=== PATIENT | male | born 1990 | race Caucasian/White ===

== ENCOUNTER 2018-01-03 16:04 | Emergency (ER) | payer BC ==
[2018-01-03] MEDS: ASPIRIN 81 MG CHEW TABLET PO (16:54)
[2018-01-03] MEDS: NS 1,000 ML IV (16:54)
[2018-01-03 17:11] LABS: BASO # 0.1 10^3/uL (0.0-0.2); BASO % 0.7 % (0.0-1.0); EOS # 0.4 10^3/uL (0.0-0.50); EOS % 3.9 % (0.0-3.0); HEMATOCRIT 50.9 % (42.0-52.0); HEMOGLOBIN 18.1 g/dl (13.5-17.5); IMMATURE GRANULOCYTE % 0.3 % (0-3.0); LYMPH # 2.9 10^3/uL (1.5-6.5); LYMPH % 30.8 % (24.0-44.0); MEAN CORPUSCULAR HEMOGLOBIN 29.7 pg (27.0-33.0); MEAN CORPUSCULAR HGB CONC 35.6 g/dl (32.0-36.5); MEAN CORPUSCULAR VOLUME 83.4 fl (80.0-96.0); MONO # 0.9 10^3/uL (0.0-0.8); MONO % 9.2 % (0.0-5.0); NEUTROPHILS # 5.2 10^3/uL (1.8-7.7); NEUTROPHILS % 55.1 % (36.0-66.0); PLATELET COUNT, AUTOMATED 298 10^3/uL (150-450); RED CELL DISTRIBUTION WIDTH 12.7 % (11.5-14.5); WHITE BLOOD COUNT 9.4 10^3/uL (4.0-10.0)
[2018-01-03 17:19] LABS: INR 0.96; PROTHROMBIN TIME 12.9 SECONDS (12.1-14.4)
[2018-01-03 17:44] LABS: ALBUMIN 4.4 GM/DL (3.2-5.2); ALKALINE PHOSPHATASE 93 U/L (45-117); ALT/SGPT 62 U/L (12-78); ANION GAP 9 MEQ/L (8-16); AST/SGOT 26 U/L (7-37); BILIRUBIN,DIRECT 0.2 MG/DL (0.0-0.2); BILIRUBIN,TOTAL 1.4 MG/DL (0.2-1.0); BLOOD UREA NITROGEN 21 MG/DL (7-18); CALCIUM LEVEL 9.2 MG/DL (8.5-10.1); CARBON DIOXIDE LEVEL 26 MEQ/L (21-32); CHLORIDE LEVEL 101 MEQ/L (98-107); CPK CREATINE PHOSPHOKINASE 247 U/L (39-308); CREATININE FOR GFR 1.08 MG/DL (0.70-1.30); FREE T4 0.85 NG/DL (0.76-1.46); GLOMERULAR FILTRATION RATE > 60.0 (>60); GLUCOSE, FASTING 92 MG/DL (70-100); LIPASE 137 U/L (73-393); MB/CK RELATIVE INDEX 0.81 (< OR =4); POTASSIUM SERUM 3.9 MEQ/L (3.5-5.1); SODIUM LEVEL 136 MEQ/L (136-145); TOTAL PROTEIN 8.4 GM/DL (6.4-8.2); TROPONIN I < 0.02 NG/ML (< 0.10)
== END 2018-01-03 18:16 | disposition home or self-care (01) ==
LOC: M ED 16:04
DX: I49.3 Ventricular premature depolarization (principal); I48.91 Unspecified atrial fibrillation; I10 Essential (primary) hypertension; K21.9 Gastro-esophageal reflux disease without esophagitis; Z79.899 Other long term (current) drug therapy
CPT/HCPCS: 71046

== ENCOUNTER → 2018-02-05 | Outpatient (REF) | payer BC ==
[2018-02-05 20:43] LABS: CHLAMYDIA DNA AMPLIFICATION NEGATIVE (NEGATIVE); GC DNA AMPLIFICATION NEGATIVE (NEGATIVE)
== END ==
LOC: M LAB REF 15:53
DX: N45.1 Epididymitis (principal)
CPT/HCPCS: 87086

== ENCOUNTER → 2018-05-11 | Outpatient (CLI) | payer BC ==
[~2018-05-11] MED LIST: CARV6.25 PO; FAMO40TA3 PO; LISI-538 PO; OMEP40CA2 PO
[2018-05-11 13:39] LABS: BASO # 0.1 10^3/uL (0.0-0.2); BASO % 0.7 % (0.0-1.0); EOS # 0.4 10^3/uL (0.0-0.50); EOS % 4.5 % (0.0-3.0); HEMATOCRIT 49.6 % (42.0-52.0); HEMOGLOBIN 16.9 g/dl (13.5-17.5); LYMPH # 2.5 10^3/uL (1.5-6.5); LYMPH % 31.4 % (24.0-44.0); MEAN CORPUSCULAR HGB CONC 34.1 g/dl (32.0-36.5); MEAN CORPUSCULAR VOLUME 85.2 fl (80.0-96.0); MONO # 0.8 10^3/uL (0.0-0.8); MONO % 9.4 % (0.0-5.0); NEUTROPHILS # 4.3 10^3/uL (1.8-7.7); NEUTROPHILS % 53.5 % (36.0-66.0); PLATELET COUNT, AUTOMATED 282 10^3/uL (150-450); RED BLOOD COUNT 5.82 10^6/uL (4.30-6.10)
[2018-05-11 14:14] LABS: BLOOD UREA NITROGEN 12 MG/DL (7-18); CALCIUM LEVEL 9.3 MG/DL (8.5-10.1); CARBON DIOXIDE LEVEL 31 MEQ/L (21-32); CHLORIDE LEVEL 103 MEQ/L (98-107); CREATININE FOR GFR 0.86 MG/DL (0.70-1.30); GLOMERULAR FILTRATION RATE > 60.0 (>60); GLUCOSE, FASTING 73 MG/DL (70-100); POTASSIUM SERUM 4.4 MEQ/L (3.5-5.1); SODIUM LEVEL 139 MEQ/L (136-145)
== END ==
LOC: M LAB 12:10
PROVIDERS: ATTEND Nurse Practitioner Family
DX: R19.7 Diarrhea, unspecified (principal)

== ENCOUNTER → 2019-08-26 | Outpatient (REF) | payer BC ==
[~2019-08-26] MED LIST changes: -OMEP40CA2 PO; +OMEP40CA97 PO
== END ==
LOC: M SMT 18:18
PROVIDERS: ATTEND Urology
DX: Z30.2 Encounter for sterilization (principal)

== ENCOUNTER → 2019-10-24 | Outpatient (REF) | payer BC ==
[~2019-10-24] MED LIST changes: +COQ-100C5 PO; +FLEC150T; +KEFL500C17 PO
[2019-10-25 11:11] LABS: SEMEN APPEARANCE OPAQUE (OPAQUE); SEMEN VISCOSITY LIQUID (LIQUID); SEMEN VOLUME 4.3 ml (2.0-5.0); WBC CONCENTRATION <=1 M/ml (<=1 M/ml)
== END ==
LOC: M LAB REF 15:00
PROVIDERS: ATTEND Urology
DX: Z98.52 Vasectomy status (principal)

== ENCOUNTER 2019-12-24 08:20 | Emergency (ER) | payer BC ==
[~2019-12-24] VITALS: Ht 167.6 cm; Wt 97.8 kg
[~2019-12-24 08:20] MED LIST changes: -COQ-100C5 PO; -FLEC150T; -KEFL500C17 PO
[2019-12-24] MEDS ORDERED: COQ-100C5 PO (08:31)
[2019-12-24] MEDS ORDERED: FLEC150T (08:31)
[2019-12-24] MEDS ORDERED: ACETAMINOPHEN 500 MG TAB PO ONE (09:00)
--- NOTE | 2019-12-24 09:11 | REP ---
INDICATION: stepped on nail yesterday COMPARISON: None. TECHNIQUE: AP, lateral, bilateral oblique views left foot. FINDINGS: The osseous structures and joint spaces are intact and normal. There is no evidence for acute fracture or dislocation. Surrounding soft tissues are unremarkable. No subcutaneous emphysema or radiodense foreign body. IMPRESSION: No subcutaneous emphysema or foreign body identified. No acute fracture or dislocation. <Electronically signed by Gordon Parker > 12/24/19 [id number]
[2019-12-24] MEDS ORDERED: BOOSTRIX/ADACEL VACCINE (DIPHTH/PERTUSS/ACELL/TETANUS) 0.5ML SYR IM ONE (09:15)
[2019-12-24] MEDS ORDERED: MEROPENEM INJ 1 GM in IV 1 EA IV ONE (10:00)
[2019-12-24] MEDS ORDERED: KEFL500C17 PO (10:22)
[2019-12-24 11:00] VITALS: BP 110/62
== END 2019-12-24 11:01 | disposition home or self-care (01) ==
LOC: M ED 08:20
DX: S91.332A Puncture wound without foreign body, left foot, initial encounter (principal); W45.0XXA Nail entering through skin, initial encounter; Y92.9 Unspecified place or not applicable; Y93.9 Activity, unspecified; I48.91 Unspecified atrial fibrillation; K21.9 Gastro-esophageal reflux disease without esophagitis; Z79.899 Other long term (current) drug therapy
CPT/HCPCS: 73630; 90471; 90715; 96365; 99284; J2185

== ENCOUNTER 2019-12-26 09:23 | Emergency (ER) | payer BC ==
[~2019-12-26] VITALS: Ht 167.6 cm; Wt 96.7 kg
[~2019-12-26 09:23] MED LIST changes: +COQ-100C5 PO; +FLEC150T; +KEFL500C17 PO
[2019-12-26] MEDS ORDERED: MEROPENEM INJ 1 GM in IV 1 EA IV ONE (10:00)
[2019-12-26 10:55] LABS: BASO # 0.1 10^3/uL (0.0-0.2); BASO % 0.7 % (0.0-1.0); EOS # 0.2 10^3/uL (0.0-0.5); EOS % 1.8 % (0.0-3.0); HEMATOCRIT 47.8 % (42.0-52.0); HEMOGLOBIN 16.1 g/dl (13.5-17.5); LYMPH # 2.9 10^3/uL (1.5-5.0); LYMPH % 35.4 % (24.0-44.0); MEAN CORPUSCULAR HEMOGLOBIN 28.7 pg (27.0-33.0); MEAN CORPUSCULAR HGB CONC 33.7 g/dl (32.0-36.5); MEAN CORPUSCULAR VOLUME 85.2 fl (80.0-96.0); MONO # 0.9 10^3/uL (0.0-0.8); MONO % 10.5 % (0.0-5.0); NEUTROPHILS # 4.2 10^3/uL (1.5-8.5); NEUTROPHILS % 51.4 % (36.0-66.0); PLATELET COUNT, AUTOMATED 283 10^3/uL (150-450); RED BLOOD COUNT 5.61 10^6/uL (4.30-6.10); WHITE BLOOD COUNT 8.2 10^3/uL (4.0-10.0)
[2019-12-26 11:33] VITALS: BP 112/68
== END 2019-12-26 11:34 | disposition home or self-care (01) ==
LOC: M ED 09:23
DX: S91.332D Puncture wound without foreign body, left foot, subsequent encounter (principal); W45.0XXD Nail entering through skin, subsequent encounter; Y92.9 Unspecified place or not applicable; I48.91 Unspecified atrial fibrillation; K21.9 Gastro-esophageal reflux disease without esophagitis; Z79.899 Other long term (current) drug therapy
CPT/HCPCS: 85025; 96365; 99283; J2185

== ENCOUNTER → 2020-03-05 | Outpatient (CLI) | payer BC ==
[2020-03-05 14:45] LABS: ALT/SGPT 52 U/L (12-78); BILIRUBIN,TOTAL 0.8 MG/DL (0.2-1.0); BLOOD UREA NITROGEN 23 MG/DL (7-18); CALCIUM LEVEL 9.3 MG/DL (8.5-10.1); CARBON DIOXIDE LEVEL 29 MEQ/L (21-32); CHLORIDE LEVEL 102 MEQ/L (98-107); CREATININE FOR GFR 1.08 MG/DL (0.70-1.30); FREE T4 0.94 NG/DL (0.76-1.46); GLOMERULAR FILTRATION RATE > 60.0 (>60); GLUCOSE, FASTING 72 MG/DL (70-100); MAGNESIUM LEVEL 1.9 MG/DL (1.8-2.4); NT-PRO BNP 11 PG/ML (<125); POTASSIUM SERUM 4.5 MEQ/L (3.5-5.1); SODIUM LEVEL 136 MEQ/L (136-145); TOTAL PROTEIN 7.4 GM/DL (6.4-8.2)
== END ==
LOC: M LAB 13:00
PROVIDERS: ATTEND Internal Medicine Cardiovascular Disease
DX: I49.3 Ventricular premature depolarization (principal); I11.9 Hypertensive heart disease without heart failure; E78.2 Mixed hyperlipidemia

== ENCOUNTER 2020-10-16 20:40 | Emergency (ER) | payer BC ==
[~2020-10-16] VITALS: Ht 167.6 cm; Wt 97.3 kg
[~2020-10-16 20:40] MED LIST changes: -LISI-538 PO; +LISI20TA33 PO; +OMEP40CA4 PO; -OMEP40CA97 PO
[2020-10-16 22:29] LABS: BASO # 0.1 10^3/uL (0.0-0.2); BASO % 0.7 % (0.0-1.0); EOS # 0.2 10^3/uL (0.0-0.5); EOS % 2.6 % (0.0-3.0); HEMATOCRIT 46.3 % (42.0-52.0); HEMOGLOBIN 15.9 g/dl (13.5-17.5); LYMPH # 2.9 10^3/uL (1.5-5.0); LYMPH % 33.1 % (24.0-44.0); MEAN CORPUSCULAR HEMOGLOBIN 29.1 pg (27.0-33.0); MEAN CORPUSCULAR HGB CONC 34.3 g/dl (32.0-36.5); MEAN CORPUSCULAR VOLUME 84.6 fl (80.0-96.0); MONO # 0.8 10^3/uL (0.0-0.8); MONO % 8.8 % (2.0-8.0); NEUTROPHILS # 4.8 10^3/uL (1.5-8.5); NEUTROPHILS % 54.5 % (36.0-66.0); PLATELET COUNT, AUTOMATED 252 10^3/uL (150-450); RED BLOOD COUNT 5.47 10^6/uL (4.30-6.10); WHITE BLOOD COUNT 8.9 10^3/uL (4.0-10.0)
[2020-10-16] MEDS ORDERED: ACETAMINOPHEN TAB 650MG DOSE (2X325MG) PO ONE (22:40)
--- NOTE | 2020-10-16 22:42 | REPVR ---
PROCEDURE INFORMATION: Exam: XR Chest Exam date and time: 10/16/2020 10:21 PM Age: 30 years old Clinical indication: Chest wall pain; Additional info: Chest pain TECHNIQUE: Imaging protocol: XR of the chest. Views: 1 view. COMPARISON: CR Chest, 2 view PA, Lat 01/03/2018 4:42 PM FINDINGS: Lungs: The lungs are unchanged. No interval infiltrates. Pleural spaces: Unremarkable. No pleural effusion. No pneumothorax. Heart/Mediastinum: The heart and mediastinum are unchanged. Bones/joints: Unremarkable. Soft tissues: There are moderately generous overlying soft tissues. IMPRESSION: Negative chest without change from 01/03/2018. Electronically signed by: Azam Mcallister On 10/16/2020 22:42:30 PM
[2020-10-16 23:12] LABS: ALBUMIN 3.9 GM/DL (3.2-5.2); ALT/SGPT 53 U/L (12-78); BILIRUBIN,DIRECT 0.2 MG/DL (0.0-0.2); BILIRUBIN,TOTAL 0.7 MG/DL (0.2-1.0); BLOOD UREA NITROGEN 13 MG/DL (7-18); CALCIUM LEVEL 8.6 MG/DL (8.5-10.1); CARBON DIOXIDE LEVEL 27 MEQ/L (21-32); CHLORIDE LEVEL 107 MEQ/L (98-107); CK-MB VALUE MASS 1.7 NG/ML (<3.6); CPK CREATINE PHOSPHOKINASE 224 U/L (39-308); CREATININE FOR GFR 0.88 MG/DL (0.70-1.30); FREE T4 0.83 NG/DL (0.76-1.46); GLOMERULAR FILTRATION RATE > 60.0 (>60); GLUCOSE, FASTING 104 MG/DL (70-100); LIPASE 136 U/L (73-393); MAGNESIUM LEVEL 2.1 MG/DL (1.8-2.4); MB/CK RELATIVE INDEX 0.76 (< OR =4); NT-PRO BNP 32 PG/ML (<125); POTASSIUM SERUM 4.1 MEQ/L (3.5-5.1); SODIUM LEVEL 138 MEQ/L (136-145); TOTAL PROTEIN 7.1 GM/DL (6.4-8.2); TROPONIN I < 0.02 NG/ML (< 0.10)
[2020-10-16 23:42] VITALS: BP 104/57
--- NOTE | 2020-10-17 10:06 | ECGEPIP ---
[facility] - ED Test Date: 2020-10-16 Pat Name: CARISSA ALBERTS Department: Room: - Gender: Male [employer] Color Tester: BEN : 1990 Requested By: JAILENE Swanson Order Number: [id number] Reading MD: Natividad Love Measurements Intervals [place] Rate: 84 P: 52 CT: 174 QRS: 76 QRSD: 104 T: 40 QT: 366 QTc: 432 Interpretive Statements Normal sinus rhythm NSTTW abnormalities decreased ectopy/rate 01/03/18 Electronically Signed on 10-17-2020 10:06:28 EDT by Natividad Love
== END 2020-10-16 23:50 | disposition home or self-care (01) ==
LOC: M ED 20:40
DX: R00.2 Palpitations (principal); I48.91 Unspecified atrial fibrillation; I10 Essential (primary) hypertension; F12.10 Cannabis abuse, uncomplicated

== ENCOUNTER → 2021-08-12 | Outpatient (CLI) | payer BC | LOC: M SOG 07:57 | PROVIDERS: ATTEND Orthopaedic Surgery | DX: M25.561 Pain in right knee (principal) ==

== ENCOUNTER → 2022-04-15 | Outpatient (CLI) | payer OTHER ==
[~2022-04-15] MED LIST changes: +E-Z-GAS II EFFERVESCENT PACKET (SODIUM BICARB./CITRIC ACID/SIMETHICONE) As Ordered ONE; +E-Z-HD 98% w/w 340GM SUSP BTL As Ordered ONE; +E-Z-PAQUE 96% w/w SUSP 176GM BTL As Ordered ONE; -FLEC150T; +FLEC150T PO; +OMEP40CA5 PO
== END ==
LOC: M RAD 07:39
PROVIDERS: ATTEND Physician Assistant Medical
DX: R13.10 Dysphagia, unspecified (principal)

== ENCOUNTER → 2022-04-23 | Outpatient (CLI) | payer OTHER ==
[~2022-04-23] MED LIST changes: -E-Z-GAS II EFFERVESCENT PACKET (SODIUM BICARB./CITRIC ACID/SIMETHICONE) As Ordered ONE; -E-Z-HD 98% w/w 340GM SUSP BTL As Ordered ONE; -E-Z-PAQUE 96% w/w SUSP 176GM BTL As Ordered ONE
== END ==
LOC: M LABSMTC 10:11
PROVIDERS: ATTEND Anesthesiology
DX: Z01.812 Encounter for preprocedural laboratory examination (principal); Z11.52 Encounter for screening for COVID-19

== ENCOUNTER 2022-04-28 13:23 | Day surgery (SDC) | payer OTHER ==
[~2022-04-28] VITALS: Ht 167.6 cm; Wt 110.1 kg
[~2022-04-28 13:23] MED LIST changes: +NS 1,000 ML IV ONE
[2022-04-28] MEDS ORDERED: fentaNYL 100 MCG/2 ML INJECTION As Ordered ONE (15:18)
[2022-04-28] MEDS ORDERED: propofoL 200 MG/20 ML VIAL As Ordered ONE (15:37)
[2022-04-28 15:55] VITALS: BP 121/70
== END 2022-04-28 16:00 | disposition home or self-care (01) ==
LOC: M OPP 13:23
PROVIDERS: ATTEND Internal Medicine Gastroenterology
DX: K31.7 Polyp of stomach and duodenum (principal); R13.10 Dysphagia, unspecified; I10 Essential (primary) hypertension; I49.3 Ventricular premature depolarization; Z87.891 Personal history of nicotine dependence; Z79.899 Other long term (current) drug therapy
CPT/HCPCS: 43239; 43251; 43450; 88305; J3010

== ENCOUNTER 2023-02-20 10:48 | Emergency (ER) | payer BC, OTHER ==
[~2023-02-20] VITALS: Ht 167.6 cm; Wt 99.5 kg
[~2023-02-20 10:48] MED LIST changes: -NS 1,000 ML IV ONE
[2023-02-20] MEDS ORDERED: BISO5TAB14 (11:04)
[2023-02-20] MEDS ORDERED: OMEP-173 (11:04)
[2023-02-20] MEDS ORDERED: ISOVUE-370 76% 100ML VIAL As Ordered ONE (11:12)
[2023-02-20 11:25] LABS: HEMATOCRIT 53.3 % (42.0-52.0); HEMOGLOBIN 18.3 g/dl (13.5-17.5); MEAN CORPUSCULAR HEMOGLOBIN 28.9 pg (27.0-33.0); MEAN CORPUSCULAR HGB CONC 34.3 g/dl (32.0-36.5); MEAN CORPUSCULAR VOLUME 84.2 fl (80.0-96.0); PLATELET COUNT, AUTOMATED 299 10^3/uL (150-450); RED BLOOD COUNT 6.33 10^6/uL (4.30-6.10); WHITE BLOOD COUNT 10.5 10^3/uL (4.0-10.0)
[2023-02-20 11:37] LABS: INR 0.98; PROTHROMBIN TIME 12.7 SECONDS (12.5-14.5)
[2023-02-20 11:38] LABS: PARTIAL THROMBOPLASTIN TIME 26.9 SECONDS (24.8-34.2)
[2023-02-20 14:10] VITALS: BP 114/70; TEMP 97.2; O2SAT 99
== END 2023-02-20 14:16 | disposition home or self-care (01) ==
LOC: M ED 10:48
DX: Z71.1 Person with feared health complaint in whom no diagnosis is made (principal); R00.0 Tachycardia, unspecified; I10 Essential (primary) hypertension; K21.9 Gastro-esophageal reflux disease without esophagitis; F10.10 Alcohol abuse, uncomplicated; Z86.79 Personal history of other diseases of the circulatory system
CPT/HCPCS: 36415; 71275; 80047; 85027; 85610; 85730; 93005; 93041; 94760; 99284; Q9967

== ENCOUNTER → 2023-05-26 | Outpatient (CLI) | payer BC ==
[~2023-05-26] MED LIST changes: +BISO5TAB14; +OMEP-173
[2023-05-26 17:20] LABS: BASO # 0.1 10^3/uL (0.0-0.2); BASO % 0.7 % (0.0-1.0); EOS # 0.2 10^3/uL (0.0-0.5); EOS % 1.9 % (0.0-3.0); HEMATOCRIT 49.3 % (42.0-52.0); HEMOGLOBIN 17.2 g/dl (13.5-17.5); LYMPH # 3.7 10^3/uL (1.5-5.0); LYMPH % 42.7 % (24.0-44.0); MEAN CORPUSCULAR HEMOGLOBIN 29.5 pg (27.0-33.0); MEAN CORPUSCULAR HGB CONC 34.9 g/dl (32.0-36.5); MEAN CORPUSCULAR VOLUME 84.4 fl (80.0-96.0); MONO # 0.6 10^3/uL (0.0-0.8); MONO % 7.4 % (2.0-8.0); NEUTROPHILS % 46.8 % (36.0-66.0); PLATELET COUNT, AUTOMATED 289 10^3/uL (150-450); RED BLOOD COUNT 5.84 10^6/uL (4.30-6.10); WHITE BLOOD COUNT 8.6 10^3/uL (4.0-10.0)
[2023-05-26 17:38] LABS: ALBUMIN 4.4 G/DL (3.2-5.2); ALKALINE PHOSPHATASE 84 U/L (46-116); ALT/SGPT 66 U/L (7.0-40); AST/SGOT 24 U/L (<34); BILIRUBIN,TOTAL 1.7 MG/DL (0.3-1.2); BLOOD UREA NITROGEN 11 MG/DL (9-23); CALCIUM LEVEL 9.6 MG/DL (8.5-10.1); CARBON DIOXIDE LEVEL 29 MMOL/L (20-31); CHLORIDE LEVEL 104 MMOL/L (98-107); CHOLESTEROL LEVEL 193 MG/DL (<200); CHOLESTEROL RISK RATIO 6.58 (<5); CREATININE FOR GFR 0.84 MG/DL (0.70-1.30); GLOMERULAR FILTRATION RATE > 60.0 (>60); GLUCOSE, FASTING 87 MG/DL (60-100); HDL CHOLESTEROL 29.3 MG/DL (>40); LDL CHOLESTEROL 126.9 MG/DL (<100); NON-HDL-C 163.7 MG/DL; POTASSIUM SERUM 4.2 MMOL/L (3.5-5.1); SODIUM LEVEL 136 MMOL/L (136-145); TOTAL PROTEIN 7.4 G/DL (5.7-8.2); TRIGLYCERIDES LEVEL 184 MG/DL (<150)
[2023-05-26 17:41] LABS: FREE T4 1.08 NG/DL (0.89-1.76); THYROID STIMULATING HORMONE 2.388 uIU/ML (0.55-4.78)
[2023-05-26 17:42] LABS: HEMOGLOBIN A1c 5.1 % (4.0-6.0)
== END ==
LOC: M RAD 16:32
PROVIDERS: ATTEND Nurse Practitioner Adult Health
DX: I48.0 Paroxysmal atrial fibrillation (principal)

== ENCOUNTER → 2023-06-09 | Outpatient (CLI) | payer BC ==
[2023-06-09 13:06] LABS: ALT/SGPT 89 U/L (7.0-40); AST/SGOT 33 U/L (<34); BILIRUBIN,DIRECT 0.3 MG/DL (<0.4); BILIRUBIN,TOTAL 1.6 MG/DL (0.3-1.2)
[2023-06-09 13:39] LABS: HEPATITIS C VIRUS ABY INDEX < 0.02 INDEX (<0.8)
[2023-06-09 13:40] LABS: HEPATITIS B CORE ANTIBODY IGM NEGATIVE (NEGATIVE)
== END ==
LOC: M LAB 11:44
PROVIDERS: ATTEND Nurse Practitioner Adult Health
DX: R74.01 Elevation of levels of liver transaminase levels (principal)

== ENCOUNTER → 2023-06-26 | Outpatient (CLI) | payer BC | LOC: M RAD 08:24 | PROVIDERS: ATTEND Nurse Practitioner Adult Health | DX: K76.0 Fatty (change of) liver, not elsewhere classified (principal) ==

== ENCOUNTER → 2023-09-11 | Outpatient (CLI) | payer BC ==
[2023-09-11 12:16] LABS: BASO # 0.1 10^3/uL (0.0-0.2); BASO % 0.9 % (0.0-1.0); EOS # 0.1 10^3/uL (0.0-0.5); EOS % 1.9 % (0.0-3.0); HEMATOCRIT 51.6 % (42.0-52.0); LYMPH # 2.4 10^3/uL (1.5-5.0); LYMPH % 37.7 % (24.0-44.0); MEAN CORPUSCULAR HEMOGLOBIN 29.3 pg (27.0-33.0); MEAN CORPUSCULAR HGB CONC 34.9 g/dl (32.0-36.5); MONO # 0.6 10^3/uL (0.0-0.8); MONO % 9.5 % (2.0-8.0); NEUTROPHILS # 3.2 10^3/uL (1.5-8.5); NEUTROPHILS % 49.8 % (36.0-66.0); PLATELET COUNT, AUTOMATED 274 10^3/uL (150-450); RED BLOOD COUNT 6.14 10^6/uL (4.30-6.10); WHITE BLOOD COUNT 6.3 10^3/uL (4.0-10.0)
[2023-09-11 12:26] LABS: ALBUMIN 4.3 G/DL (3.2-5.2); ALKALINE PHOSPHATASE 99 U/L (46-116); ALT/SGPT 51 U/L (7.0-40); AST/SGOT 21 U/L (<34); BLOOD UREA NITROGEN 14 MG/DL (9-23); CARBON DIOXIDE LEVEL 30 MMOL/L (20-31); CHLORIDE LEVEL 102 MMOL/L (98-107); CHOLESTEROL LEVEL 207 MG/DL (<200); CHOLESTEROL RISK RATIO 7.08 (<5); CREATININE FOR GFR 0.94 MG/DL (0.70-1.30); GLOMERULAR FILTRATION RATE > 60.0 (>60); GLUCOSE, FASTING 87 MG/DL (60-100); HDL CHOLESTEROL 29.2 MG/DL (>40); LDL CHOLESTEROL 148.4 MG/DL (<100); NON-HDL-C 177.8 MG/DL; POTASSIUM SERUM 4.4 MMOL/L (3.5-5.1); SODIUM LEVEL 137 MMOL/L (136-145); TOTAL PROTEIN 7.6 G/DL (5.7-8.2); TRIGLYCERIDES LEVEL 147 MG/DL (<150)
[2023-09-11 12:28] LABS: THYROID STIMULATING HORMONE 1.441 uIU/ML (0.55-4.78)
[2023-09-11 12:29] LABS: FREE T4 1.18 NG/DL (0.89-1.76)
== END ==
LOC: M LAB 08:37
PROVIDERS: ATTEND Nurse Practitioner Adult Health
DX: I48.0 Paroxysmal atrial fibrillation (principal); K21.9 Gastro-esophageal reflux disease without esophagitis; J45.909 Unspecified asthma, uncomplicated; R00.2 Palpitations; Z13.1 Encounter for screening for diabetes mellitus; I11.9 Hypertensive heart disease without heart failure; E55.9 Vitamin D deficiency, unspecified; Z83.42 Family history of familial hypercholesterolemia; Z83.3 Family history of diabetes mellitus

== ENCOUNTER 2023-09-27 19:36 | Emergency (ER) | payer BC ==
[~2023-09-27] VITALS: Ht 167.6 cm; Wt 95.0 kg
[2023-09-27] MEDS: ACETAMINOPHEN TAB 650MG DOSE (2X325MG) PO ONE (21:09)
[2023-09-27 23:10] LABS: BASO # 0.1 10^3/uL (0.0-0.2); BASO % 0.4 % (0.0-1.0); EOS % 0.2 % (0.0-3.0); HEMATOCRIT 48.3 % (42.0-52.0); HEMOGLOBIN 16.8 g/dl (13.5-17.5); LYMPH # 1.7 10^3/uL (1.5-5.0); LYMPH % 10.1 % (24.0-44.0); MEAN CORPUSCULAR HEMOGLOBIN 29.4 pg (27.0-33.0); MEAN CORPUSCULAR HGB CONC 34.8 g/dl (32.0-36.5); MEAN CORPUSCULAR VOLUME 84.6 fl (80.0-96.0); MONO % 6.2 % (2.0-8.0); NEUTROPHILS # 13.9 10^3/uL (1.5-8.5); NEUTROPHILS % 82.8 % (36.0-66.0); PLATELET COUNT, AUTOMATED 250 10^3/uL (150-450); RED BLOOD COUNT 5.71 10^6/uL (4.30-6.10); WHITE BLOOD COUNT 16.8 10^3/uL (4.0-10.0)
[2023-09-27 23:34] LABS: BLOOD UREA NITROGEN 12 MG/DL (9-23); CALCIUM LEVEL 9.4 MG/DL (8.5-10.1); CARBON DIOXIDE LEVEL 24 MMOL/L (20-31); CHLORIDE LEVEL 103 MMOL/L (98-107); CK-MB VALUE MASS < 1.0 NG/ML (<3.6); CREATININE FOR GFR 0.93 MG/DL (0.70-1.30); GLOMERULAR FILTRATION RATE > 60.0 (>60); GLUCOSE, FASTING 100 MG/DL (60-100); SODIUM LEVEL 135 MMOL/L (136-145)
[2023-09-27 23:38] LABS: FREE T4 0.93 NG/DL (0.89-1.76); THYROID STIMULATING HORMONE 0.723 uIU/ML (0.55-4.78)
[2023-09-27 23:46] LABS: CPK CREATINE PHOSPHOKINASE 177 U/L (46-171); MB/CK RELATIVE INDEX 0.56 (< OR =4)
[2023-09-28 00:28] VITALS: BP 99/56; TEMP 98.7; O2SAT 99
[2023-09-28] MEDS ORDERED: AMOX500C PO (01:11)
[2023-09-28] MEDS: AMOXICILLIN 500 MG CAP PO ONE (01:16)
== END 2023-09-28 01:19 | disposition home or self-care (01) ==
LOC: M ED 19:36
DX: J02.0 Streptococcal pharyngitis (principal); R00.2 Palpitations; D72.829 Elevated white blood cell count, unspecified; I48.91 Unspecified atrial fibrillation; I10 Essential (primary) hypertension; K21.9 Gastro-esophageal reflux disease without esophagitis; Z79.2 Long term (current) use of antibiotics; Z79.899 Other long term (current) drug therapy

== ENCOUNTER 2024-09-05 09:13 | Day surgery (SDC) | payer BC ==
[~2024-09-05] VITALS: Ht 167.6 cm; Wt 106.7 kg
[~2024-09-05 09:13] MED LIST changes: +AMOX500C PO; -BISO5TAB14; +BISO5TAB14 PO; +LIDOCAINE 2% 100 MG/5 ML SDV (FOR ANES.) As Ordered ONE; +MIDAZOLAM INJ 2 MG/2 ML VIAL As Ordered ONE; +ROCURONIUM BROMIDE 50MG/5ML VIAL As Ordered ONE
[2024-09-05] MEDS ORDERED: LR 1,000 ML IV SCH (11:05)
[2024-09-05] MEDS ORDERED: LIDOCAINE W/EPINEPHrine 1% 20 ML VIAL As Ordered ONE (11:45)
[2024-09-05] MEDS ORDERED: ESMOLOL 100 MG/10 ML VIAL As Ordered ONE (12:36)
[2024-09-05] MEDS ORDERED: ACETAMINOPHEN 1000MG/100ML IV BAG As Ordered ONE (12:37)
[2024-09-05] MEDS ORDERED: SUGAMMADEX SODIUM 500 MG/5 ML VIAL As Ordered ONE (12:44)
[2024-09-05] MEDS ORDERED: MORPHINE 2 MG/ML 1 ML VIAL IV PRN (13:00)
[2024-09-05] MEDS ORDERED: ONDANSETRON 4MG 2ML VIAL IV PRN (13:00)
[2024-09-05 14:10] VITALS: BP 131/80; TEMP 97.1; O2SAT 99
== END 2024-09-05 14:12 | disposition home or self-care (01) ==
LOC: M SDC 09:13
PROVIDERS: ATTEND Otolaryngology
DX: K11.6 Mucocele of salivary gland (principal); I10 Essential (primary) hypertension; K76.0 Fatty (change of) liver, not elsewhere classified; Z79.899 Other long term (current) drug therapy
CPT/HCPCS: 42808; 88305; J0131; J0665; J1805; J2250; J3010